=== PATIENT | male | born 2000 | race Caucasian/White ===

== ENCOUNTER 2025-02-06 00:11 | Day surgery (SDC) | payer BC, SELFPAY ==
[2025-02-06] VITALS (108 sets, daily range): BP systolic 75–150; BP diastolic 22–104; PULSE 50–87; RESP 14–20; TEMP 36.2–37.1; O2SAT 93–100; BMI 27.1
[2025-02-06 00:25] LABS: Glucose Negative (Negative)
--- NOTE | 2025-02-06 00:31 | W.ED.GENAD ---
Discharge Plan Disposition Patient Disposition: Admit to [facility] Condition: Stable Discharge Details Clinical Impression: Acute appendicitis Primary Care Provider: Unknown,Unknown ED Provider: Ronan Adames General Mode of arrival: ambulatory. Date/Time Provider Initiated Documentation: 02/06/25 00:31. Limitations to Documentation: no limitations. Information obtained by: patient and RN notes reviewed. HPI Narrative: Patient presents to ED with lower abdominal pain. Patient reports that he had some generalized abdominal pain during the day that he thought was gas. He was able to eat tonight. Woke up from sleep with actual pain in his lower abdomen. Had a normal bowel movement but did not relieve the pain at all. Has nausea but no vomiting. Denies any urinary symptoms, testicular pain, groin pain. Denies any back pain. No previous surgeries on his abdomen. No fever that he is aware of. Does not feel like eating currently. Related Data Allergies Allergy/AdvReac Type Severity Reaction Status Date / Time pollen extracts Allergy Unknown Verified 02/06/25 00:21 General Stated Complaint: Abd Prob ROX: 3 Exam Narrative Exam Narrative: Const: WDWN male in NAD. VS per triage. HEENT: NC/AT. Normal facial exam. Neck: Supple. Trachea midline. Lungs: Normal respiratory effort. Cor: RRR. Good radial pulses. GI: Soft/ND. Tender in the RLQ with some guarding. No Rovsing sign. Neuro: A+O x 3. Normal speech, mentation, gait. Cranial nerves II - XII grossly intact. No gross motor or sensory deficit. Ext: No C/C/E. Course Vital Signs Vital signs: Vital Signs Temperature 97.9 F 02/06/25 00:15 Pulse 77 02/06/25 00:15 Respiratory Rate 18 02/06/25 00:15 Blood Pressure 150/78 H 02/06/25 00:15 Pulse Oximetry 97 02/06/25 00:15 Temperature 97.9 F 02/06/25 00:15 Temperature Source Oral 02/06/25 00:15 Pulse 77 02/06/25 00:18 Respiratory Rate 18 02/06/25 00:18 Blood Pressure 150/77 H 02/06/25 00:18 Pulse Oximetry 98 02/06/25 00:18 Oxygen Delivery Method Room Air 02/06/25 00:18 Oxygen Flow Rate 0 02/06/25 00:15 Pain Level 7 02/06/25 00:15 Lab/Test Results Lab/Test Results: Laboratory Tests Range/Units 02/06/25 00:16 Urine Color (Yellow) Yellow Urine Clarity (Clear) Clear Urine pH (5-8) 7.0 Ur Specific [place] (1.005-1.025) 1.020 Urine Protein (Neg-Trace) mg/dL Negative Urine Ketones (Negative) mg/dL Negative Urine Blood (Negative) Negative Urine Nitrite (Negative) Negative Urine Bilirubin (Negative) Negative Urine Urobilinogen (Up to 0.2) mg/dL 0.2 Ur Leukocyte Esterase (Negative) Negative Urine Glucose (Negative) mg/dL Negative Medical Decision Making Patient presenting to ED with lower abdominal pain, nausea, decreased appetite. He is tender in the right lower quadrant with some mild rebound/guarding. Must consider possibility of appendicitis. Did have generalized abdominal pain during the day which is now localizing to the lower abdomen with tenderness in the right lower quadrant. IV in place. Declines antiemetic or pain medication. Will be made NPO. Fluids started. Labs and CT scan ordered. 02:15 - Patient's laboratory studies and urinalysis are completely normal. His CT scan does show acute appendicitis with no perforation. Ceftriaxone and Flagyl ordered. Will keep n.p.o. and continue hydration. Will discuss with surgery later this morning. Patient aware of findings and plan, agreeable with same. 05:30 - Discussed with surgery, Dr. Lane. Patient will be an add on case today. He remains stable here in ED. Lab Data Lab results reviewed: Yes I reviewed the patient's lab results. Lab results narrative: see [facility] All Active Problems (Updated 02/06/25 @ 02:17 by Ronan Adames MD) Acute appendicitis (Acute) Surgical History Circumcision Fracture, Closed Treatment Family History Mother No problems noted. Father Essential hypertension Social History Smoking/Tobacco Use Status: Never Second Hand Exposure: No Smoking risk assessment performed?: Yes Alcohol Intake: never Drug use: Never Adopted: No Foster care: No Household members: family current occupation: Construction work Pets and animals: Yes (X 1) Do you think of yourself as: straight/heterosexual Current gender identity: male Seatbelt use: always Helmet use: Yes Drive intox or ride w/intox security patrol driver: No PAWSS Have you Been Recently Intoxicated or Drunk Within the Last 30 days?: No Have you Ever Experienced Previous Episodes of Alcohol Withdrawal?: No Have you ever Experienced Withdrawal Seizures?: No Have you ever Experienced Delirium Tremens(DT)s?: No Have you ever undergone Alcohol Rehabilitation Treatment (i.e, inpt ot outpatient treatment programs)?: No Have you ever Experienced Blackouts?: No Have you ever Combined Alcohol with other Downers within the last 90 days?: No Have you ever Combined Alcohol with any other Substance of Abuse during the last 90 days?: No Positive Blood Alcohol level on Presentation? [PCS.BAL]: No Evidence of Increased Autonomic Activity (i.e. HR>120, tremor, sweating, agitation, nausea)?: No Result: 0
[2025-02-06 00:48] LABS: Abs Immature Grans 0.03 10^3/uL (0.0-0.06); HCT 40.9 % (40.0-50.0); HGB 14.0 g/dL (13.5-17.5); Immature Grans % 0.3 %; MCH 28.9 pg (27.0-33.0); MCHC 34.2 % (32.0-36.0); MCV 84 fL (80-95); MPV 10.5 fL (8.0-11.0); Platelet Count 209 10^3/uL (130-400); RBC 4.85 10^6/uL (4.36-5.78); RDW 12.1 % (11.8-14.1); RDW-SD 36.9 fL; WBC 9.14 10^3/uL (4.4-10.8)
[2025-02-06 01:04] LABS: ALT 44 U/L (16-63); AST 29 U/L (15-37); Albumin 4.3 g/dL (3.4-5.0); Alkaline Phosphatase 79 U/L (46-116); Anion Gap 7.9 mmol/L (3-11); BUN 15 mg/dL (7-18); Bilirubin, Total 0.5 mg/dL (0.2-1.0); CO2 31.1 mmol/L (21.0-32.0); Calcium 9.0 mg/dL (8.5-10.1); Chloride 102 mmol/L (98-107); Estimated GFR 96.74 (mL/min/1.73m2); Glucose 97 mg/dL (74-106); Lipase 29 U/L (<78); Potassium 3.6 mmol/L (3.5-5.1); Sodium 141 mmol/L (136-145); Total Protein 7.9 g/dL (6.4-8.2)
[2025-02-06] MEDS: Lactated Ringers 1,000 ML 125 ML IV (01:09)
--- NOTE | 2025-02-06 01:11 | DI.CT_ITS ---
Exam(s) CT ABDOMEN PELVIS W EXAM: CT ABDOMEN PELVIS W CLINICAL HISTORY: RLQ pain/tenderness. TECHNIQUE: Imaging Protocol: Axial computed tomography images with coronal and sagittal reformatted images were created and reviewed CONTRAST MATERIAL: Intravenous: Omnipaque-350 75cc Oral: None COMPARISON: No exams were available for comparison FINDINGS: VISUALIZED LUNG BASES: No nodules nor pleural effusions evident. ABDOMEN: There is no ascites. LIVER: There are no focal hepatic lesions evident. No dilated intrahepatic ducts. GALLBLADDER/BILIARY: No obvious gallbladder pathology. CBD is not dilated. PANCREAS: No evidence of pancreatic mass nor dilatation of the pancreatic duct. SPLEEN: Spleen is not enlarged. No obvious intrasplenic lesions. Splenic and portal veins are patent. ADRENALS: There are no significant adrenal masses. KIDNEYS:Small 6 mm benign cortical cysts in left kidney. This does not require further workup. No solid renal masses. No calculi nor hydronephrosis.. ABDOMINAL AORTA: Abdominal aorta is not enlarged. LYMPH NODES:There is no retroperitoneal nor paraaortic adenopathy. ABDOMINAL WALL: No evidence of significant anterior abdominal wall nor inguinal hernia. GI: There is no evidence of bowel obstruction, free air, nor abscess. PELVIS: GI: The appendix is fluid-filled and straightened with circumferential mural enhancement and increased diameter up to 9 mm. Concerning for acute appendicitis. No evidence of rupture.No evidence of sigmoid diverticulitis. LYMPH NODES: There is no intrapelvic nor inguinal adenopathy. REPRODUCTIVE: Prostate not enlarged. URINARY BLADDER: No calculi nor obvious masses evident OSSEOUS: No fractures and no significant osseous lesions. IMPRESSION: 1. Findings consistent with acute appendicitis. Preliminary virtual Radiology report was reviewed. RADIATION DOSE DELIVERED: 461.8mGy.cm Total DLP DATA REPOSITORY: All CT scans at this facility are submitted to the National Radiology Data Registry (NRDR) Dose Index Registry (DIR) with the [employer] (ACR). RADIATION OPTIMIZATION: All CT scans at this facility use at least one of these dose optimization techniques: automated exposure control; mA and/or kV adjustment per patient size (includes targeted exams where dose is matched to clinical indication); or iterative reconstruction.
[2025-02-06] MEDS: Omnipaque 350 MG/ML 100 ML BTL IJ (01:12)
[2025-02-06] MEDS: Normal Saline Flush 10 ML SYR IVP (01:12)
[2025-02-06] MEDS: Normal Saline - Diluent 50 ML VIAL IJ (01:13)
--- NOTE | 2025-02-06 02:08 | DI.VRAD_ITS ---
Addendum created by Wan Gunderson MD on 02/06/2025 2:10:46 AM EDT: THIS REPORT CONTAINS FINDINGS THAT MAY BE CRITICAL TO PATIENT CARE. The findings were verbally communicated via telephone conference with ELLEN PORTER at 2:10 AM EDT on 02/06/2025. The findings were acknowledged and understood. Initial report created on 02/06/2025 2:08:14 AM EDT: PROCEDURE INFORMATION: Exam: CT Abdomen And Pelvis With Contrast Exam date and time: 02/06/2025 12:53 AM Age: 24 years old Clinical indication: Abdominal pain; Localized; Right lower quadrant (rlq); Rlq pain/tenderness TECHNIQUE: Imaging protocol: Computed tomography of the abdomen and pelvis with contrast. Radiation optimization: All CT scans at this facility use at least one of these dose optimization techniques: automated exposure control; mA and/or kV adjustment per patient size (includes targeted exams where dose is matched to clinical indication); or iterative reconstruction. COMPARISON: No relevant prior studies available. FINDINGS: Liver: Normal. No mass. Gallbladder and biliary ducts: Normal. No calcified stones. No ductal dilation. Pancreas: Normal. No ductal dilation. Spleen: Normal. No splenomegaly. Adrenal glands: Normal. No mass. Kidneys and ureters: 6 mm cyst left kidney. No hydronephrosis. No ureteral stones. Stomach and bowel: Unremarkable. No obstruction. No mucosal thickening. Appendix: Appendix fluid filled and dilated up to 8 mm with surrounding inflammatory change consistent with acute appendicitis. Intraperitoneal space: Unremarkable. No free air. No significant fluid collection. Vasculature: Unremarkable. No abdominal aortic aneurysm. Lymph nodes: Unremarkable. No enlarged lymph nodes. Urinary bladder: Unremarkable as visualized. Reproductive: Unremarkable as visualized. Bones/joints: Unremarkable. No acute fracture. Soft tissues: Unremarkable. IMPRESSION: Acute appendicitis. Dictated and Authenticated by: Wan Gunderson MD. Orderin Zacarias Ferraro MD
[2025-02-06] MEDS: cefTRIAXone 1 GM/50 ML BAG IVPB (02:25)
[2025-02-06] MEDS: metroNIDAZOLE 500 MG/100 ML BAG 100 MG IVPB (02:59)
--- NOTE | 2025-02-06 11:00 | W.PM.HP.N ---
Date of service: 02/06/25 Time of Service: 12:56 Assessment and Plan Assessment and plan (1) Acute appendicitis: Status: Acute Assessment and plan: Appendectomy indicated. Reviewed CT scan images and report. Consistent with appendicitis. Plan lap appendectomy. Discussed procedure risks, benefits, alternatives and expectations. Reviewed activity restrictions postoperatively, and expected trajectory of recovery. Discussed 4 scenarios for intraop findings including appendicitis, perforated appendicitis, other pathology, or normal appearing organs. Plans reviewed. Patient asked good questions and verbalized understanding of the plan. Consent obtained after discussion of risks, benefits, alternatives and expectations includng pain, pain pill addiction, bleeding, infection, abscess, need for more procedures, and damage to nearby structures such as bladder. All questions answered. Proceed to the OR. History of Present Illness History of Present Illness Chief Complaint: appendicitis Narrative: 24yo M with acute appendicitis. He presented to the ER overnight with worsening/persistent abd pain that he has been experiencing for a day. It woke him from sleep and intensified. It was not relieved with havin a BM, and he lost his appetite. He was able to eat normally yesterday. CT scan in the ED shows an acute appendicitis. He was prepared for appendectomy today. [facility] All Active Problems (Updated 02/06/25 @ 12:[address] MD) Acute appendicitis (Acute) Surgical History Fracture, Closed Treatment Circumcision Family History Mother No problems noted. Father Essential hypertension Social History Smoking/Tobacco Use Status: Never Second Hand Exposure: No Smoking risk assessment performed?: Yes Alcohol Intake: current Alcohol Intake frequency: a few times a month Drug use: Never Substance use type: does not use Adopted: No Foster care: No Household members: family current occupation: Construction work Pets and animals: Yes (X 1) Do you think of yourself as: straight/heterosexual Current gender identity: male Seatbelt use: always Helmet use: Yes Drive intox or ride w/intox party bus driver: No Additional Social history: UTAP Meds Allergies and Home Medications Allergies Allergy/AdvReac Type Severity Reaction Status Date / Time pollen extracts Allergy Unknown Verified 02/06/25 00:21 Exam Narrative Exam Narrative: awake, NAD eomi, MMM midline trachea, neck is symmetric PULM: normal resp effort, equal chest rise with respiration, no wheezing audible CARDIAC: normal PMI, no jvd, regular rate, normal perfusion abdomen is nondistended. extremities are without deformity, normal movement of all four extremities speech is clear and coherent mood and affect are congruent, no focal neurological deficits skin without rash Results Labs 02/06/25 00:21 02/06/25 00:21 Labs: Laboratory Results - last 24 hr 02/06/25 02/06/25 00:16 00:21 WBC 9.14 RBC 4.85 Hgb 14.0 Hct 40.9 MCV 84 MCH 28.9 MCHC 34.2 RDW 12.1 Plt Count 209 MPV 10.5 Immature Gran % 0.3 Neutrophils % 65.2 Lymphocytes % 24.6 Monocytes % 8.2 Eosinophils % 1.4 Basophils % 0.3 Nucleated RBC % 0.0 Absolute Neutrophils 5.95 Absolute Lymphocytes 2.25 Absolute Monocytes 0.75 Absolute Eosinophils 0.13 Absolute Basophils 0.03 Sodium 141 Potassium 3.6 Chloride 102 Carbon Dioxide 31.1 Anion Gap 7.9 BUN 15 Creatinine 1.1 Est GFR (CKD-EPI 2020) 96.74 Glucose 97 Calcium 9.0 Total Bilirubin 0.5 AST 29 ALT 44 Alkaline Phosphatase 79 Total Protein 7.9 Albumin 4.3 Lipase 29 Urine Color Yellow Urine Clarity Clear Urine pH 7.0 Ur Specific [place] 1.020 Urine Protein Negative Urine Ketones Negative Urine Blood Negative Urine Nitrite Negative Urine Bilirubin Negative Urine Urobilinogen 0.2 Ur Leukocyte Esterase Negative Urine Glucose Negative Last Vital Signs Temp 98.1 F 02/06/25 10:47 Pulse 72 02/06/25 10:47 Resp 16 02/06/25 10:47 BP 133/76 02/06/25 10:47 Pulse Ox 96 02/06/25 10:47 PAWSS Have you Been Recently Intoxicated or Drunk Within the Last 30 days?: No Have you Ever Experienced Previous Episodes of Alcohol Withdrawal?: No Have you ever Experienced Withdrawal Seizures?: No Have you ever Experienced Delirium Tremens(DT)s?: No Have you ever undergone Alcohol Rehabilitation Treatment (i.e, inpt ot outpatient treatment programs)?: No Have you ever Experienced Blackouts?: No Have you ever Combined Alcohol with other Downers within the last 90 days?: No Have you ever Combined Alcohol with any other Substance of Abuse during the last 90 days?: No Positive Blood Alcohol level on Presentation? [PCS.BAL]: No Evidence of Increased Autonomic Activity (i.e. HR>120, tremor, sweating, agitation, nausea)?: No Result: 0 Time Spent Time spent with Patient: 40-54 minutes Time was spent: preparing to see the patient(eg.review tests), indepentently interpreting results and counseling the patient
[2025-02-06] MEDS: Lactated Ringers 1,000 ML 80 ML IV (11:44)
--- NOTE | 2025-02-06 12:50 | ANES.PREOP_ITS ---
General Info Date of Service Date Performed: 02/06/25 Height: 5 ft 10 in Weight: 86 kg Body Mass Index (BMI): 27.1 Surgical Procedure: Operation Date: 02/06/25 13:40 Proposed Procedure Side Surgeon p Appendectomy Laparoscopic Shahana Lane MD Meds Allergies and Home Medications Allergies Allergy/AdvReac Type Severity Reaction Status Date / Time pollen extracts Allergy Unknown Verified 02/06/25 00:21 Current Visit Medications: Current Medications Generic Name Dose Route Start Last Admin Trade Name Freq PRN Reason Stop Dose Admin Ringer's Solution 1,000 mls @ 125 mls/hr 02/06/25 00:45 02/06/25 10:38 IV Infused INFUSION KYLE Infusion Ringer's Solution 1,000 mls @ 80 mls/hr 02/06/25 11:15 02/06/25 11:44 IV 03/08/25 11:14 80 mls/hr INFUSION KYLE Administration Ringer's Solution 1,000 mls @ 125 mls/hr 02/06/25 11:30 IV 03/08/25 11:29 INFUSION KYLE IV Miscellaneous Supplies 1 each 02/06/25 00:45 Iv Access IV DIRECTED KYLE Iohexol 100 ml 02/06/25 01:15 02/06/25 01:12 Omnipaque 350 Mg/Ml 100 Ml Btl IJ 03/08/25 23:59 100 ml DIRECTED KYLE Administration Sodium Chloride 0 ml 02/06/25 00:38 Normal Saline Flush 10 Ml Syr IVP PRN PRN Sodium Chloride 0 ml 02/06/25 08:30 02/06/25 01:12 Normal Saline Flush 10 Ml Syr IVP 10 ml BID KYLE Administration Sodium Chloride 0 ml 02/06/25 00:38 Normal Saline 10 Ml Vial IJ DIRECTED PRN Sodium Chloride 50 ml 02/06/25 01:15 02/06/25 01:13 Normal Saline - Diluent 50 Ml Vial IJ 50 ml DIRECTED KYLE Administration Sodium Chloride 0 ml 02/06/25 01:12 Normal Saline Flush 10 Ml Syr IVP PRN PRN PFSH Active Problems Active Problems: Problem Status Onset Code Acute appendicitis Acute K35.80 Surgical History Surgical History Circumcision Fracture, Closed Treatment Tobacco Smoking/Tobacco Use Status: Never Passive smoking exposure: No Second hand exposure: No Alcohol Alcohol Intake: current Alcohol intake frequency: a few times a month Substance Use Substance use: Never Substance use type: does not use Vital Signs and Lab Results Vital Signs Most Recent Vital Signs in EMR: Most Recent Vital Signs Temp Pulse Resp BP Pulse Ox 36.7 C 72 16 133/76 96 02/06/25 10:47 02/06/25 10:47 02/06/25 10:47 02/06/25 10:47 02/06/25 10:47 Point of Care Results Point of Care Results: Finger Stick Blood Glucose 92 02/06/25 06:33 Lab Results 02/06/25 00:21 02/06/25 00:21 Complete Blood Count: 2 WBC, (4.4-10.8) 9.14 10^3/uL Today, 00:21 RBC, (4.36-5.78) 4.85 10^6/uL Today, 00:21 Hgb, (13.5-17.5) 14.0 g/dL Today, 00:21 Hct, (40.0-50.0) 40.9 % Today, 00:21 Plt Count, (130-400) 209 10^3/uL Today, 00:21 Complete Metabolic Panel: 2 Sodium, (136-145) 141 mmol/L Today, 00:21 Potassium, (3.5-5.1) 3.6 mmol/L Today, 00:21 Chloride, (98-107) 102 mmol/L Today, 00:21 Carbon Dioxide, (21.0-32.0) 31.1 mmol/L Today, 00:21 BUN, (7-18) 15 mg/dL Today, 00:21 Creatinine, (0.70-1.30) 1.1 mg/dL Today, 00:21 Est GFR (CKD-EPI 2020), (mL/min/1.73m2) 96.74 Today, 00:21 Calcium, (8.5-10.1) 9.0 mg/dL Today, 00:21 Albumin, (3.4-5.0) 4.3 g/dL Today, 00:21 Glucose, (74-106) 97 mg/dL Today, 00:21 Liver Function Panel: 2 ALT, (16-63) 44 U/L Today, 00:21 AST, (15-37) 29 U/L Today, 00:21 Pancreas Panel: 2 Lipase, (<78) 29 U/L Today, 00:21 Anesthesia Assessment and Plan Anesthesia History Personal History: No History of Anesthesia Complications Family History: No Family History of Anesthesia Complications Exercise Tolerance Exercise Tolerance: Metabolic Equivalents>4 Pertinent Negatives Pertinent Negatives: No Symptoms of GERD, No Major Cardiovascular Symptoms or Complaints, No Major Pulmonary Symptoms or Complaints and No History of CVA/TIA Cardiac & Pulmonary Exam Cardiac Exam: Normal S1/S2 Heart Sounds Pulmonary Exam: Clear Bilateral Breath Sounds Implantable Cardiac Device Does patient have a Pacemaker or an ICD?: No Airway Exam Known Difficult Airway: No Mallampati Class: 1 Mouth Opening: Normal (> 3cm) Thyromental Distance: Greater than 3 cm Neck Range of Motion: Full ROM Neck Circumference: Normal Teeth Condition: Normal Dentition ASA Classification ASA Score: ASA 2 Emergency Case?: No NPO Status NPO Status: NPO Clears >2 hours, Solids >8 hours and NPO Clear Liquids>2 hours Anesthesia Plan Resuscitation Status: Full Code Anesthesia Technique: General Anesthesia Airway Planned: Endotracheal Tube Monitors Used: Standard Monitors
--- NOTE | 2025-02-06 13:00 | PDOC.DSDIS_ITS ---
Date of service: 02/06/25 Discharge Plan Disposition Patient Disposition: Home Condition: Stable Discharge Details Reason For Visit: Appendicitis Attending Provider: Shahana Lane Primary Care Provider: Unknown,Unknown Recommendations for Follow Up Recommended tests to be ordered by follow up provider: None Home Meds and New Rx's Prescriptions: New hydrocodone-acetaminophen 5-325 mg tablet 1 tab PO Q6H PRN (Reason: pain) Qty: 10 0RF Discharge Instructions Additional Instructions: Shower in 48 hours. Wash gently over steri-strips with soapy hands, rinse, pat dry. Don't peel strips or submerge them under water. The longer they stay on, the nicer the scars will heal. Ok to walk, climb stairs, and resume normal activities of daily living. Do not lift/push/pull more than 20lb for 4 weeks. Diet as tolerated. Watch for constipation while using the prescribed pain me dication. You may use up to 800mg of ibuprofen every 8 hours instead of OR along with the prescribed pain meds to help reduce pain, and help reduce the need for the prescribed pain med. Call or return for fever or incisional problems. See Dr Lane in office for follow up check on March 05, 2025 at 9:30am. Arrive 5 minutes early please. Shower/Bathe:: 48 hours Diet:: As Tolerated Discharge Orders Discharge Orders: Discharge Order (Routine); Ordered 02/06/25 Ordered By: Shahana Lane DS: Diagnosis Discharge Diagnosis (1) Acute appendicitis: Status: Acute
[2025-02-06] MEDS: Bupivacaine 0.25% Pres-Free W/EPI 30 ML VIAL (13:55)
--- NOTE | 2025-02-06 13:55 | APP_PTH ---
PATIENT: Kamari Hines LOC: [facility] U#:[id number] AGE/SX: 24/M ROOM: RE02/06/[address]: Shahana Lane MD : 2000 BED: DIS: 02/06/2025 SPEC #: [id number] RECD: 02/06/25 15:49 STATUS: EZ REQ #: [id number] TRINA: 02/06/25 13:[address]: Shahana Lane DEPT: Surgical Specimen RECD BY: Kiah Ray ENTERED: 02/06/25 15:50 SP TYPE: Appendix OTHR DR: Unknown,Unknown Tissues: 1 - APPENDIX NOT INCIDENTAL Procedures: GROSS AND MICRO LEVEL 3 Comments: [id number]
--- NOTE | 2025-02-06 13:59 | W.PM.OP ---
Operative Note Operative Note Refer to Anesthesia Record Procedure Description: Preoperative Diagnosis: Acute appendicitis Postoperative Diagnosis: Acute appendicitis Procedure: Laparoscopic appendectomy Surgeon: Shahana Lane MD Security Door Installer: Tiffanie Granados EBL: 10mL Anesthesia: GETA + local Specimen: Appendix Complications: None Procedure Description: This is a 24-year-old patient who was evaluated in the emergency department for abdominal pain. They had classic symptoms, and a CAT scan showing acute appendicitis. Appendectomy was indicated. We discussed laparoscopic appendectomy procedure at length, including a discussion about the risks, the benefits, the alternatives, and the expectations. Informed consent was obtained and the patient was taken to the operating room. The patient was placed supine on the operating table. SCDs were placed and all pressure points were padded appropriately. General anesthesia was induced. The abdomen was clipped, prepped, and draped in the usual sterile fashion. Timeout was performed. Local anesthetic was infiltrated into the skin and subcutaneous tissues at the planned incision sites. An infraumbilical incision was made with a scalpel. The umbilical stalk was grasped and elevated and the fascia cleared with cautery. An incision was made in the fascia and a Lo clamp was used to enter the peritoneum. A finger sweep confirmed no structures against the abdominal wall. A Gonzalez trocar was introduced and the abdomen was insufflated to 15 mmHg. Initial laparoscopy confirmed no injury to the intra-abdominal structures. Two additional 5 mm ports were placed under direct visualization, 1 in the lower midline and 1 in the left lower abdomen. The patient was placed in Trendelenburg position and rotated toward the left. The cecum was identified and followed to the location of the appendix. The appendix was dilated and abnormally thickened. There was evidence of fat change and inflammation consistent with appendicitis. The appendix was grasped and elevated. A [place] dissector was used to dissected the base of the appendix from the cecum and fat. A bowel load stapler was used to transect the appendix at the base against the cecum. Next the mesoappendix was freed and cleared and a vascular load stapler was used to transect the mesoappendix. The appendix was placed into an Endo Catch bag. Hemostasis was assured at the staple lines. The pelvis and right lower quadrant were suctioned clean. The appendectomy site was examined for hemostasis and it was confirmed. The appendix was removed through the umbilical site. The abdomen was desufflated. The 5mm ports were removed. The umbilical fascia was closed with an 0 Vicryl stitch in a [id number] fashion. The remainder of the local anesthetic was infiltrated at the incision sites. The skin was washed and dried. The skin at all 3 sites was closed with 4-0 Monocryl simple interrupted subcuticular sutures. Steristrips were applied. All sponge and instrument counts were correct at the end of the case. The patient tolerated the procedure well. The patient extubated in the operating room and transferred to the recovery room in stable condition. No complications. Date of Procedure: 02/06/25
[2025-02-06] MEDS: ePHEDrine 25 MG/5 ML Syringe IVP ×4 (14:18→14:40)
--- NOTE | 2025-02-06 15:17 | W.ANESPOSTOP ---
Postoperative Evaluation Date, Time and Location Date Performed: 02/06/25 Time Performed: 15:17 Patient Location: Day Surgery Unit Vital Signs Most Recent Imported Vital Signs: Most Recent Vital Signs Temp Pulse Resp BP Pulse Ox 36.2 C L 87 16 118/60 99 02/06/25 15:07 02/06/25 15:07 02/06/25 15:07 02/06/25 15:07 02/06/25 15:07 Pain Score Most Recent Pain Score: Most Recent Pain Score Pain Level 3 02/06/25 15:07 Assessment Mental Status: Awake (Alert & Oriented to Patient Baseline) Airway and Respiratory Function: Patent airway with normal (patient baseline) respiratory exam Cardiovascular Function: Hemodynamically Stable Hydration Status: Adequately Hydrated Nausea & Vomiting: No Nausea or Vomiting Pain: Pain is tolerable per patient Peripheral Nerve Block: Patient did not receive a nerve block
== END 2025-02-06 15:53 | disposition home or self-care (01) ==
LOC: ER 07:02 → SUR 10:34
PROVIDERS: Emergency Provider Emergency Medicine; Visit Provider Surgery
PROC: 0DTJ4ZZ Resection of Appendix, Percutaneous Endoscopic Approach (ICD-10-PCS; CPT 44970; principal; 2025-02-06 13:30)
DX: K35.80 Unspecified acute appendicitis (principal)
CPT/HCPCS: 44970; 36415; 36416; 80053; 82962; 83690; 96361; 96365; 96367; 99285; 74177; 81003; 85025; 88304; J0131; J0696; J1100; J1836; J1885; J2003; J2405; J2704; J3010; J3490